=== PATIENT | male | born 1985 | race Caucasian/White ===

== ENCOUNTER 2017-07-24 11:27 | Emergency (ER) | payer OTHER ==
[~2017-07-24] VITALS: Ht 182.9 cm; Wt 122.5 kg
--- OUTSIDE RECORDS SUMMARY | 2017-07-24 11:35 | XMS REPORT | Referral Summary ---
Author Author [facility] Organization [facility] Address Unknown Phone Unavailable Care Team Providers Care Practical Nursing Teacher Name Role Phone Kp Hernandez PCP Encounter VC Date(s): 05/25/15 - 05/25/15 [facility] [address] [place] [address] Discharge Diagnosis: Ganglion of left wrist Discharge Disposition: 01-Home or Self Care Attending Physician: Willi Soliz MD Admitting Physician: Willi Soliz MD Vital Signs Most recent to 1 oldest [Reference Range]: Temperature Temporal 36.3 degC Artery [36.3-37.8 (05/25/15 9:00 AM) degC] Peripheral Pulse 72 bpm Rate [60-100 bpm] (05/25/15 5:44 AM) Heart Rate Monitored 84 bpm [60-100 bpm] (05/25/15 9:30 AM) Respiratory Rate 18 br/min [14-20 br/min] (05/25/15 9:30 AM) Blood Pressure 156/105 mmHg [90-140/60-90 mmHg] *HI* (05/25/15 9:30 AM) SpO2 96 % (05/25/15 9:30 AM) Problem List Condition Effective Dates Status Health Status Informant Acute Active pain(Confirmed) At risk for < 09/05/15 Resolved injury(Confirmed)1 Obesity(Confirmed) Active patient Tissue perfusion < 5/18/15 Resolved alteration(Confirmed )2 Tobacco Active patient user(Confirmed) 1Problem added automatically by system based on initiation of Risk for Injury Plan of Care 2Problem added automatically by system based on initiation of Tissue Perfusion Cerebral Plan of Care Allergies, Adverse Reactions, Alerts No Known Allergies Medications No Known Medications Results Chemistry Most recent to 1 oldest [Reference Range]: Blood Glucose, 95 mg/dL Capillary [70-100 (05/25/15 6:08 AM) mg/dL] Immunizations No data available for this section Procedures Procedure Date Related Diagnosis Body Site Excision Ganglion (Left, Wrist)1 05/25/15 teeth removed 1auto-populated from documented surgical case Social History Social History Type Response Smoking Status Current every day smoker; Type: Cigarettes; Tobacco use per day: 1 Pack Assessment and Plan No data available for this section
--- OUTSIDE RECORDS SUMMARY | 2017-07-24 11:35 | XMS REPORT | Referral Summary ---
Author Author [facility] Organization [facility] Address Unknown Phone Unavailable Care Team Providers Care Aircraft Armorer Name Role Phone Kp Hernandez PCP Encounter VC Date(s): 01/12/15 - 01/12/15 [facility] [address] [place] [address] Discharge Diagnosis: Ankle sprain Discharge Disposition: 01-Home or Self Care Attending Physician: Marco Cardenas MD Admitting Physician: Marco Cardenas MD Vital Signs Most recent to 1 oldest [Reference Range]: Temperature Oral 36.8 degC [35.8-37.3 degC] (01/12/15 10:20 PM) Peripheral Pulse 96 bpm Rate [60-100 bpm] (01/12/15 10:20 PM) Respiratory Rate 18 br/min [14-20 br/min] (01/12/15 10:20 PM) Blood Pressure 137/96 mmHg [90-140/60-90 mmHg] (01/12/15 10:20 PM) SpO2 96 % (01/12/15 10:20 PM) Problem List Condition Effective Dates Status Health Status Informant Acute Active pain(Confirmed) At risk for < 09/05/14 Resolved injury(Confirmed)1 Obesity(Confirmed) Active patient Tissue perfusion < 09/05/14 Resolved alteration(Confirmed )2 Tobacco Active patient user(Confirmed) 1Problem added automatically by system based on initiation of Risk for Injury Plan of Care 2Problem added automatically by system based on initiation of Tissue Perfusion Cerebral Plan of Care Allergies, Adverse Reactions, Alerts No Known Allergies Medications Ultram 50 mg oral tablet 50 mg 1 tabs, Oral, q6hr, as needed for pain, # 12 tabs, 0 Refill(s) Start Date: 01/12/15 Status: Ordered Results No data available for this section Immunizations No data available for this section Procedures No data available for this section Social History Social History Type Response Smoking Status Current every day smoker; Type: Cigarettes; Tobacco use per day: 1 Pack Assessment and Plan No data available for this section
--- OUTSIDE RECORDS SUMMARY | 2017-07-24 11:35 | XMS REPORT | Referral Summary ---
Author Author [facility] Organization [facility] Address Unknown Phone Unavailable Care Team Providers Care Sales Service Route Manager Name Role Phone Kp Hernandez PCP Encounter VC Date(s): 02/16/16 - 02/16/16 [facility] [address] [place] [address] Discharge Diagnosis: Plantar fasciitis, left Discharge Disposition: 01-Home or Self Care Attending Physician: Cameron Lincoln MD Admitting Physician: Cameron Lincoln MD Referring Physician: Self Referred, X Vital Signs Most recent to 1 oldest [Reference Range]: Temperature Oral 36.9 degC [35.8-37.3 degC] (02/16/16 10:34 AM) Peripheral Pulse 84 bpm Rate [60-100 bpm] (02/16/16 11:33 AM) Respiratory Rate 16 br/min [14-20 br/min] (02/16/16 11:33 AM) Blood Pressure 130/90 mmHg [90-140/60-90 mmHg] (02/16/16 11:33 AM) SpO2 98 % (02/16/16 11:33 AM) Problem List Condition Effective Dates Status Health Status Informant Acute Active pain(Confirmed) At risk for < 09/05/15 Resolved injury(Confirmed)1 Obesity(Confirmed) Active patient Tissue perfusion < 18/15 Resolved alteration(Confirmed )2 Tobacco Active patient user(Confirmed) 1Problem added automatically by system based on initiation of Risk for Injury Plan of Care 2Problem added automatically by system based on initiation of Tissue Perfusion Cerebral Plan of Care Allergies, Adverse Reactions, Alerts No Known Allergies Medications Naprosyn 375 mg oral tablet 375 mg 1 tabs, Oral, BID, as needed for pain, # 20 tabs, 0 Refill(s) Start Date: 02/16/16 Stop Date: 02/25/16 Status: Ordered Results No data available for [...]
--- OUTSIDE RECORDS SUMMARY | 2017-07-24 11:35 | XMS REPORT | Referral Summary ---
Author Author [facility] Organization [facility] Address Unknown Phone Unavailable Care Team Providers Care White Washer Piler Name Role Phone Kp Hernandez PCP Encounter VC Date(s): 01/12/15 - 01/12/15 [facility] [address] [place] [address] [phone] Discharge Diagnosis: Ankle sprain Discharge Disposition: 01-Home [...]
--- OUTSIDE RECORDS SUMMARY | 2017-07-24 11:35 | XMS REPORT | Referral Summary ---
Author Author [facility] Organization [facility] Address Unknown Phone Unavailable Care Team Providers Care Die Casting Machine Setter Name Role Phone Kp Hernandez PCP Encounter VC Date(s): 09/03/14 - 09/05/14 [facility] [address] [place] [address] Discharge Diagnosis: Otitis media Discharge Diagnosis: Fever Discharge Diagnosis: Leukocytosis Discharge Diagnosis: Ear pain Final: UNSPECIFIED SEPTICEMIA Final: Sepsis Final: UNSPECIFIED OTITIS MEDIA Final: TOBACCO USE DISORDER Final: UNSPECIFIED MASTOIDITIS Discharge Disposition: 01-Home or Self Care Attending Physician: Abdulkadir Rubi MD Admitting Physician: Abdulkadir Rubi MD Vital Signs Most recent to 1 oldest [Reference Range]: Temperature Oral 36.5 degC [35.8-37.3 degC] (09/05/14 9:07 AM) Peripheral Pulse 78 bpm Rate [60-100 bpm] (09/05/14 4:41 AM) Heart Rate Monitored 87 bpm [60-100 bpm] (09/05/14 9:07 AM) Respiratory Rate 16 br/min [14-20 br/min] (09/05/14 9:07 AM) Blood Pressure 133/83 mmHg [90-140/60-90 mmHg] (09/05/14 9:07 AM) Mean Arterial 77 mmHg Pressure, Cuff (09/03/14 10:00 PM) SpO2 96 % (09/05/14 9:07 AM) Problem List Condition Effective Dates Status [...] Refill(s) Start Date: 01/12/15 Status: Ordered Results Hematology Most recent to 1 oldest [Reference Range]: WBC [4.8-10.8 10.0 10*3/uL 10*3/uL] (09/05/14 5:59 AM) RBC [4.60-6.20 4.63 10*6/uL 10*6/uL] (09/05/14 5:59 AM) Hgb [14.0-18.0 14.4 gm/dL gm/dL] (09/05/14 5:59 AM) Hct [42.0-52.0 %] 41.0 % *LOW* (09/05/14 5:59 AM) MCV [82.0-99.0 fL] 88.6 fL (09/05/14 5:59 AM) MCH [27.0-32.0 pg] 31.1 pg (09/05/14 5:59 AM) MCHC [32.0-36.0 35.1 gm/dL gm/dL] (09/05/14 5:59 AM) RDW [11.5-14.5 %] 12.6 % (09/05/14 5:59 AM) Platelet [150-400 210 10*3/uL 10*3/uL] (09/05/14 5:59 AM) MPV [9.4-12.3 fL] 10.1 fL (09/05/14 5:59 AM) Immature 0.1 % Granulocytes (09/05/14 5:59 AM) [0.0-1.0 %] Neutrophils [51-75 75 % %] (09/05/14 5:59 AM) Lymphocytes [20-46 13 % %] *LOW* (09/05/14 5:59 AM) Monocytes [4-11 %] 10 % (09/05/14 5:59 AM) Eosinophils [0-4 %] 2 % (09/05/14 5:59 AM) Basophils [0-2 %] 0 % (09/05/14 5:59 AM) Neutro Absolute 7.44 10*3 [1.90-7.00 10*3] *HI* (09/05/14 5:59 AM) Lymph Absolute 1.31 10*3 [0.80-3.30 10*3] (09/05/14 5:59 AM) Hill Absolute 0.98 10*3 [0.30-1.00 10*3] (09/05/14 5:59 AM) Eos Absolute 0.20 10*3 [0.00-0.50 10*3] (09/05/14 5:59 AM) Baso Absolute 0.03 10*3 [0.00-0.20 10*3] (09/05/14 5:59 AM) Chemistry Most recent to 1 oldest [Reference Range]: Sodium Lvl [136-144 138 mEq/L mEq/L] (09/05/14 5:59 AM) Potassium Lvl 4.0 mEq/L [3.6-5.1 mEq/L] (09/05/14 5:59 AM) Chloride [99-109 105 mEq/L mEq/L] (09/05/14 5:59 AM) CO2 [22-32 mEq/L] 26 mEq/L (09/05/14 5:59 AM) AGAP [3-20] 7 (09/05/14 5:59 AM) BUN [4-20 mg/dL] 9 mg/dL (09/05/14 5:59 AM) Glucose Lvl [70-100 104 mg/dL mg/dL] *HI* (09/05/14 5:59 AM) Creatinine Lvl 0.81 mg/dL [0.64-1.27 mg/dL] (09/05/14 5:59 AM) eGFR [>60] >60 1 (09/05/14 5:59 AM) Calcium Lvl 8.6 mg/dL [8.6-10.0 mg/dL] (09/05/14 5:59 AM) Albumin Lvl [3.5-4.8 3.5 gm/dL gm/dL] (09/05/14 5:59 AM) Total Protein 6.8 gm/dL [6.1-7.9 gm/dL] (09/03/14 11:29 PM) Globulin [1.9-4.3 3.1 gm/dL gm/dL] (09/03/14 11:29 PM) ALT [17-63 U/L] 77 U/L *HI* (09/03/14 11:29 PM) AST [15-41 U/L] 39 U/L (09/03/14 11:29 PM) Alk Phos [26-104 82 U/L U/L] (09/03/14 11:29 PM) Bili Total [0.2-1.2 0.6 mg/dL 2 mg/dL] (09/03/14 11:29 PM) Magnesium Lvl 2.2 mg/dL [1.8-2.5 mg/dL] (09/05/14 5:59 AM) Phosphorus [2.4-4.7 3.0 mg/dL 3 mg/dL] (09/05/14 5:59 AM) Lactic Acid Lvl 0.9 mEq/L [0.5-2.2 mEq/L] (09/03/14 9:08 PM) Sodium Venous 138 mEq/L [136-144 mEq/L] (09/03/14 6:05 PM) Potassium Venous 4.0 mEq/L 4 [3.6-5.1 mEq/L] (09/03/14 6:05 PM) Calcium Ionized 1.14 mmol/L Venous [1.19-1.41 *LOW* mmol/L] (09/03/14 6:05 PM) Total CO2 Venous 24 mEq/L [25-29 mEq/L] *LOW* (09/03/14 6:05 PM) HGB Venous NPT 15.0 gm/dL [14.0-18.0 gm/dL] (09/03/14 6:05 PM) HCT Venous 44.0 % [42.0-52.0 %] (09/03/14 6:05 PM) Glucose Venous 103 mg/dL [70-100 mg/dL] *HI* (09/03/14 6:05 PM) BUN Venous [4-20] 9 (09/03/14 6:05 PM) Creatinine Venous 1.1 mg/dL [0.7-1.2 mg/dL] (09/03/14 6:05 PM) Venous CL [99-109 99 mEq/L mEq/L] (09/03/14 6:05 PM) Anion Gap, Ascencion 15 [3-20] (09/03/14 6:05 PM) HIV 1 and 2 Abs Non-reactive (09/03/14 11:29 PM) 1Result Comment: Multiply eGFR results by 1.21 for race. 2Result Comment: Naproxen, specifically the metabolite O-desmethylnaproxen, may cause spurious elevation in Total Bilirubin levels. 3Result Comment: High dosages of liposomal Amphotericin B (AmBisome) therapy or other drug preparations that use a liposomal envelope to facilitate drug delivery may cause falsely elevated results for phosphorus. 4Result Comment: This test was performed on a whole blood specimen. The presence or absence of hemolysis cannot be assessed. Hemolysis can falsely elevate potassium levels. Normals are for venous specimens only. Urinalysis Most recent to 1 oldest [Reference Range]: Type Venous (09/03/14 9:04 PM) Microbiology Reports TEST: Blood Culture STATUS: Auth (Verified) BODY SITE: SOURCE: Blood COLLECTED DATE/TIME: 09/04/14 5:35 PM Blood Culture No growth after 5 days of incubation. TEST: Blood Culture STATUS: Auth (Verified) BODY SITE: SOURCE: Blood COLLECTED DATE/TIME: 09/04/14 5:27 PM Blood Culture No growth after 5 days of incubation. TEST: Blood Culture STATUS: Auth (Verified) BODY SITE: SOURCE: Blood COLLECTED DATE/TIME: 09/03/14 9:08 PM Blood Culture No growth after 5 days of incubation. TEST: Blood Culture STATUS: Auth (Verified) BODY SITE: SOURCE: Blood COLLECTED DATE/TIME: 09/03/14 9:08 PM Blood Culture No growth after 5 days of incubation. TEST: Rapid Strep Group A STATUS: Auth (Verified) BODY SITE: SOURCE: Throat COLLECTED DATE/TIME: 09/03/14 6:05 PM Rapid Strep Group A Negative TEST: Group A Strep Culture STATUS: Auth (Verified) BODY SITE: SOURCE: Throat COLLECTED DATE/TIME: 09/03/14 6:05 PM Group A Strep Culture No Group A Strep (Strep pyogenes) isolated Immunizations No data available for this section Procedures No data available for this section Social History Social History Type Response Smoking Status Current every day smoker; Type: Cigarettes; Tobacco use per day: 1 Pack Assessment and Plan No data available for this section
--- OUTSIDE RECORDS SUMMARY | 2017-07-24 11:36 | XMS REPORT | Continuity of Care Document ---
Author Author [facility] Organization [facility] Address Unknown Phone Unavailable Allergies Active Description Code Type Severity Reaction Onset Reported/Identified Relationship to Patient Clinical Status Yes NKDA N/A N/A Yes No Known Allergies NKMA N/A N/A 09/03/2014 Yes NKDA N/A N/A 05/05/2015 Medications Medication Packaging Start Date Stop Date Route Dosage Sig ETODOLAC 07/07/2013 ORAL [id number] twice daily AUGMENTIN 07/07/2013 07/07/2013 ORAL [id number] twice daily AUGMENTIN 08/19/2014 08/19/2014 ORAL [id number] twice daily BACTRIM DS 08/25/2014 08/25/2014 ORAL [id number] twice daily ondansetron(Zofran) 09/03/2014 09/03/2014 IV Push 4 mg 4 mg, IV Push, Once acetaminophen(acetaminophen) 2 tabs 09/03/2014 09/03/2014 Oral 1,000 mg 1,000 mg=2 tabs, Oral, Once ibuprofen(ibuprofen) 1 tabs 201409/03/2014 Oral 600 mg 600 mg=1 tabs, Oral, Once albuterol(albuterol 5 mg/mL (0.5%) inhalation solution) 1.5 mL 09/03/2014 09/03/2014 NEB 7.5 mg 7.5 mg=1.5 mL, NEB, Once cefTRIAXone(Rocephin) 10 mL 201409/03/2014 IV Push 1 g 1 g=10 mL, IV Push, Once vancomycin(vancomycin) 201409/03/2014 IV Piggyback 1 g 1 g, 166.67 mL/hr, IV Piggyback, Once cefTRIAXone(Rocephin) 10 mL 201409/05/2014 IV Push 1 g 1 g=10 mL, IV Push, q24hr metoclopramide(Reglan) 2 mL 201409/05/2014 IV Push 10 mg 10 mg=2 mL, IV Push, q6hr, PRN: Nausea docusate(Colace) 1 caps 09/03/2014 09/05/2014 Oral 100 mg 100 mg=1 caps, Oral, BID morphine(morphine) 0.5 mL 201409/03/2014 IV Push 1 mg 1 mg=0.5 mL, IV Push, q2hr, PRN: Pain Severe (7-10) ondansetron(Zofran) 2 mL 201409/05/2014 IV Push 4 mg 4 mg=2 mL, IV Push, q6hr, PRN: Nausea polyethylene glycol 3350(MiraLax) 1 packets 09/03/2014 09/05/2014 Oral 17 g 17 g=1 packets, Oral, Daily, PRN: Constipation traMADol(Ultram) 1 tabs 09/03/2014 09/05/2014 Oral 50 mg 50 mg=1 tabs, Oral, q6hr, PRN: Pain Moderate (4-6) calcium carbonate(Tums) 1 tabs 09/05/2014 Oral 500 mg 500 mg=1 tabs, Oral, q4hr, PRN: GERD/Heartburn acetaminophen(acetaminophen) 2 tabs 09/03/2014 09/05/2014 Oral 650 mg 650 mg=2 tabs, Oral, q4hr, PRN: Other (See Comment) omeprazole(omeprazole) 2 caps 09/0309/05/2014 Oral 40 mg 40 mg=2 caps, Oral, Daily enoxaparin(Lovenox) 0.4 mL 201409/03/2014 SubCutaneous 40 mg 40 mg=0.4 mL, SubCutaneous, Daily metoclopramide(Reglan) 2 mL 201409/03/2014 IV Push 10 mg 10 mg=2 mL, IV Push, q6hr, PRN: Nausea docusate(Colace) 1 caps 09/03/2014 09/03/2014 Oral 100 mg 100 mg=1 caps, Oral, BID morphine(morphine) 1 mL 09/03/2014 09/05/2014 IV Push 2 mg 2 mg=1 mL, IV Push, q2hr, PRN: Pain Severe (7-10) ondansetron(Zofran) 2 mL 201409/03/2014 IV Push 4 mg 4 mg=2 mL, IV Push, q6hr, PRN: Nausea polyethylene glycol 3350(MiraLax) 1 packets 09/03/2014 09/03/2014 Oral 17 g 17 g=1 packets, Oral, Daily, PRN: Constipation traMADol(Ultram) 1 tabs 09/03/2014 09/03/2014 Oral 50 mg 50 mg=1 tabs, Oral, q6hr, PRN: Pain Moderate (4-6) calcium carbonate(Tums) 1 tabs 09/03/2014 Oral 500 mg 500 mg=1 tabs, Oral, q4hr, PRN: GERD/Heartburn acetaminophen(acetaminophen) 2 tabs 09/03/2014 09/03/2014 Oral 650 mg 650 mg=2 tabs, Oral, q4hr, PRN: Other (See Comment) vancomycin(vancomycin) 201409/03/2014 IV Piggyback 2,000 mg 2,000 mg, 250 mL/hr, IV Piggyback, q12hr vancomycin(vancomycin) 201409/04/2014 IV Piggyback 1 g 1 g, 166.67 mL/hr, IV Piggyback, Once diphenhydrAMINE(Benadryl) 0.25 mL 09/04/2014 09/04/2014 Oral 12.5 mg 12.5 mg=0.25 mL, Oral, q6hr, PRN: Rash traMADol(Ultram 50 mg oral tablet) 1 tabs 01/12/2015 05/25/2015 Oral 50 mg 50 mg=1 tabs, Oral, q6hr, PRN: as needed for pain, 12 tabs, 0 Refill(s) traMADol(Ultram) 1 tabs 01/12/2015 01/12/2015 Oral 50 mg 50 mg=1 tabs, Oral, Once, PRN: Pain Moderate (4-6) MELOXICAM 04/27/2015 04/27/2015 ORAL [id number] daily MELOXICAM ORAL 05/11/2015 06/10/2015 30 daily PERCOCET ORAL 05/24/2015 05/31/2015 40 1 TAB Q4H OR 2 TABS Q6H ceFAZolin(ceFAZolin) 05/25/2015 05/25/2015 IV Push 3 g =30 mL, IV Push, PREOP ondansetron(Zofran) 1 tabs 201505/25/2015 Oral 4 mg 4 mg=1 tabs, Oral, q6hr, PRN: Nausea oxyCODONE-acetaminophen(Percocet 5/325 oral tablet) 1 tabs 05/25/2015 05/25/2015 Oral 1 tabs, Oral, q4hr, PRN: Pain Moderate (4-6) KEFLEX ORAL 06/02/2015 06/09/2015 28 4 times a day HYDROcodone-acetaminophen(HYDROcodone-acetaminophen 5 mg-325 mg oral tablet) 1 tabs 07/16/20152015 Oral 1 tabs, Oral, Once metroNIDAZOLE(Flagyl 500 mg oral tablet) 1 tabs 07/16/2015 07/21/2015 Oral 500 mg 500 mg=1 tabs, Oral, TID, for 5 days, 15 tabs, 0 Refill(s) amoxicillin(amoxicillin 500 mg oral tablet) 1 tabs 07/16/2015 07/23/2015 Oral 500 mg 500 mg=1 tabs, Oral, TID, for 7 days, for infection, 21 tabs, 0 Refill(s) ibuprofen(ibuprofen) 1 tabs 201502/16/2016 Oral 600 mg 600 mg=1 tabs, Oral, Once naproxen(Naprosyn 375 mg oral tablet) 1 tabs 02/16/2016 02/25/2016 Oral 375 mg 375 mg=1 tabs, Oral, BID, PRN: as needed for pain, 20 tabs , 0 Refill(s) Problems Date Dx Coded Attending Type Code Diagnosis Diagnosed By 01/16/2015 Marco Cardenas MD Reason 719.47 PAIN IN JOINT INVOLVING ANKLE AND FOOT 01/16/2015 Marco Cardenas MD Final 845.00 UNSPECIFIED SITE OF ANKLE SPRAIN 01/16/2015 Marco Cardenas MD Final E849.0 HOME ACCIDENTS 01/16/2015 Marco Cardenas MD Final E880.9 ACCIDENTAL FALL ON OR FROM OTHER STAIRS OR STEPS 05/29/2015 Willi Soliz MD Final E66.9 Obesity, unspecified 05/29/2015 Willi Soliz MD Final F17.210 Nicotine dependence, cigarettes, uncomplicated 05/29/2015 Willi Soliz MD Reason M67.432 Ganglion, left wrist 05/29/2015 Willi Soliz MD Final Z68.37 Body mass index (BMI) 37.0-37.9, adult 07/24/2015 Arcadio Lima DO Final K04.7 Periapical abscess without sinus 07/24/2015 Arcadio Lima DO Reason K08.8 Other specified disorders of teeth and supporting structures 02/19/2016 Lincoln Mark Reason M25.572 Pain in left ankle and joints of left foot 02/19/2016 Lincoln Mark Final M72.2 Plantar fascial fibromatosis Procedures Code [place] [address] Excision of ganglion, wrist (dorsal or volar); primary 05/25/2015 Results There is no data. Encounters ACCT No. Visit Date/Time Discharge Status Pt. Type Provider Facility Loc./Unit Complaint [id number] 02/16/2016 10:28:00 02/16/2016 11:34:00 DIS Emergency Lincoln Mark [facility] ED Left ankle pain [id number] 07/16/2015 11:19:00 07/16/2015 12:01:00 DIS Emergency Arcadio Lima DO [facility] ED facial swelling [id number] 05/25/2015 05:24:00 05/25/2015 09:54:00 DIS Outpatient Willi Soliz MD [facility] Left Wrist dorsal Ganglion Cyst [id number] 01/12/2015 21:57:00 01/12/2015 23:27:00 DIS Emergency Marco Cardenas MD [facility] ED lt foot/toes/ankle pain [id number] 02/17/2016 05:17:07 Document Registration [id number] 07/17/2015 05:16:10 Document Registration [id number] 05/26/2015 05:16:45 Document Registration [id number] 05/26/2015 05:16:44 Document Registration [id number] 02/08/2015 14:07:59 Document Registration [id number] 02/08/2015 12:17:12 Document Registration [id number] 05/24/2015 10:47:58 Document Registration [id number] 02/19/2016 16:35:42 02/19/2016 16:35:42 DIS Outpatient [id number] 05/02/2015 05:59:05 Document Registration [id number] 05/02/2015 05:59:03 Document Registration [id number] 05/02/2015 05:59:02 Document Registration [id number] 05/02/2015 05:56:21 Document Registration [id number] 09/03/2014 05:58:54 Document Registration [id number] 09/03/2014 05:58:53 Document Registration [id number] 08/27/2014 05:59:08 Document Registration [id number] 08/27/2014 05:59:07 Document Registration [id number] 08/21/2014 05:55:54 Document Registration [id number] 08/21/2014 05:55:53 Document Registration [id number] 08/21/2014 05:55:49 Document Registration [id number] 08/21/2014 05:55:44 Document Registration
--- OUTSIDE RECORDS SUMMARY | 2017-07-24 11:36 | XMS REPORT | Referral Summary ---
Author Author [facility] Organization [facility] Address Unknown Phone Unavailable Care Team Providers Care Home Maker Name Role Phone Kp Hernandez PCP Encounter VC Date(s): 01/12/15 - 01/12/15 [facility] [address] [place] [address] Discharge Diagnosis: Ankle sprain Final: UNSPECIFIED SITE OF ANKLE SPRAIN Final: ACCIDENTAL FALL ON OR FROM OTHER STAIRS OR STEPS Final: HOME ACCIDENTS Discharge Disposition: 01-Home or Self Care Attending [...] Reactions, Alerts No Known Allergies Medications No data available for this section Results No data available for this section [...]
--- OUTSIDE RECORDS SUMMARY | 2017-07-24 11:36 | XMS REPORT | Referral Summary ---
Author Author [facility] Organization [facility] Address Unknown Phone Unavailable Care Team Providers Care Shipping And Receiving Supervisor Name Role Phone Kp Hernandez PCP Encounter VC Date(s): 07/16/15 - 07/16/15 [facility] [address] [place] [address] [phone] Discharge Diagnosis: Pain, dental Discharge Diagnosis: Dental abscess Discharge Disposition: 01-Home or Self Care Attending Physician: Arcadio Lima DO Admitting Physician: Arcadio Lima DO Vital Signs Most recent to 1 oldest [Reference Range]: Temperature Oral 36.7 degC [35.8-37.3 degC] (07/16/15 11:35 AM) Peripheral Pulse 110 bpm Rate [60-100 bpm] *HI* (07/16/15 11:35 AM) Respiratory Rate 18 br/min [14-20 br/min] (07/16/15 11:35 AM) Blood Pressure 142/92 mmHg [90-140/60-90 mmHg] *HI* (07/16/15 11:35 AM) SpO2 94 % (07/16/15 11:35 AM) Problem List Condition Effective Dates Status Health Status Informant Acute Active pain(Confirmed) At risk for < 5/18/15 Resolved injury(Confirmed)1 Obesity(Confirmed) Active patient Tissue perfusion < 5/18/15 Resolved alteration(Confirmed )2 Tobacco Active patient user(Confirmed) 1Problem added automatically by system based on initiation of Risk for Injury Plan of Care 2Problem added automatically by system based on initiation of Tissue Perfusion Cerebral Plan of Care Allergies, Adverse Reactions, Alerts No Known Allergies Medications amoxicillin 500 mg oral tablet 500 mg 1 tabs, Oral, TID, for infection, X 7 days, # 21 tabs, 0 Refill(s) Start Date: 07/16/15 Stop Date: 07/23/15 Status: Ordered Flagyl 500 mg oral tablet 500 mg 1 tabs, Oral, TID, X 5 days, # 15 tabs, 0 Refill(s) Start Date: 07/16/15 Stop Date: 07/21/15 Status: Ordered Results No data available for [...]
--- NOTE | 2017-07-24 11:44 | ED Integumentary General ---
General Chief Complaint: Skin/Wound Problems Stated Complaint: KNOTS ON ARMS Source: patient Exam Limitations: no limitations History of Present Illness Date Seen by Provider: Jul 24, 2017 Time Seen by Provider: 11:38 Initial Comments To ER with reports of itchy bumps on his arms first noticed this morning. No fevers or chills. He is from [place] and is staying in a hotel here currently. He lifted up the sheets on his bed this morning and the mattress and did not notice any bedbugs. Timing/Duration: constant Severity: moderate Location: extremities Allergies and Home Medications Allergies Coded Allergies: No Known Drug Allergies (Unverified , 07/24/17) Patient Home Medication List Home Medication List Reviewed: Yes Constitutional: see HPI EENTM: see HPI Respiratory: no symptoms reported Cardiovascular: no symptoms reported Genitourinary: no symptoms reported Musculoskeletal: no symptoms reported Skin: see HPI Psychiatric/Neurological: No Symptoms Reported Endocrine: No Symptoms Reported Past Qgmlzic-Asgruf-Drrotg Hx Patient Social History Recent Foreign Travel: No Contact w/Someone Who Travel: No Physical Exam Vital Signs Capillary Refill : General Appearance: WD/WN, no apparent distress HEENT: PERRL/EOMI, normal ENT inspection Neck: non-tender, full range of motion Respiratory: no respiratory distress, no accessory muscle use Extremities: normal range of motion, non-tender Neurologic/Psychiatric: alert, normal mood/affect, oriented x 3 Skin: normal color, warm/dry, other (erythematous slightly indurated 1 cm pruritic lesions in somewhat of a linear pattern along the side of the left arm starting at the hand going up to the shoulder, down his neck posteriorly and on the right arm as well. These do appear to me to be most consistent with bedbug bites. One of the bites around the medial surface of the right upper arm has about 6 cm of surrounding erythema so I'll place him on Keflex, injection of Decadron here, Benadryl to use at home for itching.) Departure Impression Impression: Primary Impression: Soft tissue infection Additional Impression: Insect bites Disposition: 01 HOME, SELF-CARE Condition: Stable Departure-Patient Inst. Decision time for Depature: 11:41 Referrals: NO,LOCAL PHYSICIAN (PCP/Family) Primary Care Physician Patient Instructions: Insect Bites and Stings Add. Discharge Instructions: 1. Use Benadryl one tablet every 4-6 hours as needed for itching. The steroid shot that we gave you a last U2 to 3 days. Take the antibiotics as directed for the redness around the bite on the inside of your right upper arm. It is difficult to tell what these bumps are from but there are most consistent with the appearance of bedbug bites. Check around the lip around the edge of your mattress as well as within any seems. These bedbugs would be visible and usually they're about the size of an ant. If you find his, before you return home U should take all of your close off in the garage and seal them in a plastic bag for one week before bringing them into the house. All discharge instructions reviewed with patient and/or family. Voiced understanding. MACI SORIA [employer] Jul 24, 2017 11:44
[2017-07-24] MEDS ORDERED: DEXAMETHASONE 10 MG/ML (DECADRON) 1 ML VIAL IM ONE (11:45)
[2017-07-24 11:56] VITALS: BP 149/98
[2017-07-24] MEDS ORDERED: CEPH-507 PO (11:58)
== END 2017-07-24 11:56 | disposition home or self-care (01) ==
LOC: ER 11:31
DX: S40.861A Insect bite (nonvenomous) of right upper arm, initial encounter (principal); S40.862A Insect bite (nonvenomous) of left upper arm, initial encounter; L08.9 Local infection of the skin and subcutaneous tissue, unspecified; W57.XXXA Bitten or stung by nonvenomous insect and other nonvenomous arthropods, initial encounter
CPT/HCPCS: 96372; 99284